=== PATIENT | female | born 1975 | race Two or more races ===

== ENCOUNTER 2025-01-06 14:32 | Emergency (ER) | payer OTHER ==
[~2025-01-06] VITALS: Ht 165.1 cm; Wt 78.5 kg
[2025-01-06] MEDS ORDERED: TETANUS & DIPHTHERIA TOX,ADULT 0.5 ML VIAL IM ONE (16:45)
== END 2025-01-06 16:58 | disposition home or self-care (01) ==
LOC: ER 14:32
DX: S61.217A Laceration without foreign body of left little finger without damage to nail, initial encounter (principal); W45.8XXA Other foreign body or object entering through skin, initial encounter; Y93.89 Activity, other specified; Y92.89 Other specified places as the place of occurrence of the external cause; Y99.8 Other external cause status; Z88.6 Allergy status to analgesic agent; Z91.018 Allergy to other foods; Z91.040 Latex allergy status
CPT/HCPCS: 12001; 90471; 90714; 99282; J1670